=== PATIENT | female | born 1975 ===

== ENCOUNTER 2017-07-24 22:01 | Emergency (ER) | payer OTHER ==
[~2017-07-24] VITALS: Ht 170.2 cm; Wt 56.7 kg
[2017-07-24] MEDS ORDERED: METOCLOPRAMIDE HCL 10 MG/2 ML VIAL IV ONE (22:30)
[2017-07-24] MEDS ORDERED: IV NORMAL SALINE 1000 ML BAG IV ONE (22:30)
--- NOTE | 2017-07-24 22:44 | NUR ---
Pt ambulated to room with steady gait. Pt c/o severe headache for 2-3 days with generalized weakness. Denies numbness or tingling to extremities. Pt alert and oriented x 4 with no neuro deficits noted. Pt seen by Dr. Russell. IV established, labs drawn and sent. Fluid bolus infusing freely to gravity. Pt to CT via w/c
[2017-07-24 22:53] LABS: BASOPHILS % (AUTO) 0.6 % (0.0-2.0); EOSINOPHILS # (AUTO) 0.1 K/uL (0.0-0.7); EOSINOPHILS % (AUTO) 1.2 % (0.0-7.0); HEMATOCRIT 38.3 % (37-47); HEMOGLOBIN 13.3 G/DL (12.0-16.0); LYMPHOCYTES # (AUTO) 1.7 K/UL (0.8-4.8); LYMPHOCYTES % (AUTO) 33.1 % (20.5-51.5); MEAN CORPUSCULAR HEMOGLOBIN 29.9 UUG (27.0-31.0); MEAN CORPUSCULAR HGB CONC 35 g/dL (32.0-37.0); MEAN CORPUSCULAR VOLUME 86.5 FL (81.0-99.0); MONOCYTES # (AUTO) 0.4 K/UL (0.1-1.30); MONOCYTES % (AUTO) 7.6 % (0.0-11.0); NEUTROPHILS % (AUTO) 57.5 % (38.5-71.5); PLATELET COUNT (AUTO) 190 K/UL (150-450); RED BLOOD CELL COUNT(AUTO) 4.43 MIL/UL (4.2-5.4); WHITE BLOOD COUNT (AUTO) 5.2 K/UL (4.0-11.2)
[2017-07-24 22:54] LABS: CREATININE 0.8 mg/dL (0.6-1.3); POTASSIUM 3.8 mmol/L (3.5-5.1)
[2017-07-24] MEDS ORDERED: MORPHINE SULFATE 4 MG/1 ML DISP.SYRIN IV ONE (23:00)
[2017-07-24] MEDS ORDERED: METOCLOPRAMIDE HCL 10 MG/2 ML VIAL ONE (23:07)
[2017-07-24] MEDS ORDERED: MORPHINE SULFATE 4 MG/1 ML DISP.SYRIN ONE (23:08)
--- NOTE | 2017-07-24 23:16 | NUR ---
Pt returned from CT via w/c. Pt medicated for pain and nausea, will monitor for effects of medication. Pt repositioned for comfort. Fluid bolus conts to infuse freely to gravity. Family at bedside.
[2017-07-24] MEDS ORDERED: KETOROLAC TROMETHAMINE 30 MG INJ IVP ONE (23:30)
--- NOTE | 2017-07-24 23:31 | NUR ---
Fluid bolus completed. Pt sts pain improving. Pt resting in position of comfort for self.
[2017-07-24] MEDS ORDERED: KETOROLAC TROMETHAMINE 30 MG INJ ONE (23:40)
--- NOTE | 2017-07-25 00:25 | NUR ---
Pt sts she is feeling better. Pt stable for discharge per Dr. Russell. IV dc'd, catheter intact. Drsg applied. No problems noted to site. Pt given ACI. Pt verbalized understanding of dc instructions. Pt ambulated out of ER with steady gait and ride home.
[2017-07-25 00:59] VITALS: BP 110/64
== END 2017-07-25 00:25 | disposition home or self-care (01) ==
LOC: ER 22:01
DX: R51 Headache (principal)
CPT/HCPCS: 36415; 70450; 84703; 85025; A4663; J1885; J2270; J2765; J7030

== ENCOUNTER → 2019-02-07 | Emergency (ER) | payer OTHER | END | disposition left against medical advice (07) | LOC: ER 16:29 | DX: Z53.21 Procedure and treatment not carried out due to patient leaving prior to being seen by health care provider (principal) ==

== ENCOUNTER 2023-11-22 22:56 | Emergency (ER) | payer OTHER | END 2023-11-23 01:37 | disposition left against medical advice (07) | LOC: ER 23:01 | DX: Z53.21 Procedure and treatment not carried out due to patient leaving prior to being seen by health care provider (principal) ==